=== PATIENT | female | born 2000 | race Hispanic/Latino ===

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

== ENCOUNTER 2020-01-05 00:04 | Emergency (ER) | payer SELFPAY ==
[2020-01-05 00:50] LABS: APPEARANCE,URINE Cloudy (CLEAR); BILIRUBIN,URINE Negative (NEGATIVE); COLOR,URINE Yellow (YELLOW); GLUCOSE, URINE (UA) Negative (NEGATIVE); KETONES,URINE Trace mg/dL (NEGATIVE); LEUKOCYTE ESTERASE ,URINE Negative (NEGATIVE); NITRATE,URINE Negative (NEGATIVE); OCCULT BLOOD,URINE Negative (NEGATIVE); PH,URINE 5.5 (5.0-8.0); PROTEIN,URINE Negative (NEGATIVE)
[2020-01-05] MEDS ORDERED: IBUPROFEN 600 MG TABLET ONE (00:50)
[2020-01-05 00:53] LABS: HCG,QUAL RESULT NEGATIVE (NEGATIVE)
[2020-01-05 01:13] LABS: BASOPHILS % (AUTO) 0.5 % (0.0-5.0); EOSINOPHILS % (AUTO) 1.7 % (0.0-8.0); HEMATOCRIT 40.8 % (36-48); LYMPHOCYTES % (AUTO) 49.3 % (21.0-51.0); MEAN CORPUSCULAR HEMOGLOBIN 30.9 pg (27.0-33.0); MEAN CORPUSCULAR HGB CONC 34.3 g/dL (32.0-36.0); MEAN CORPUSCULAR VOLUME 90.1 fL (80-100); NEUTROPHILS % (AUTO) 42.3 % (40.0-77.0); PLATELET COUNT (AUTO) 259 K/uL (130-400); RED BLOOD CELL COUNT(AUTO) 4.53 MIL/uL (4.00-5.50); RED CELL DISTRIBUTION WIDTH 11.7 % (11.0-15.5)
[2020-01-05 01:30] LABS: CREATININE 1.1 mg/dL (0.5-1.5); POTASSIUM 3.8 mmol/L (3.5-5.1)
[2020-01-05 01:34] LABS: BILIRUBIN,TOTAL 0.8 mg/dL (0.2-1.0)
== END 2020-01-05 02:03 | disposition home or self-care (01) ==
LOC: EDH 00:04
DX: R07.89 Other chest pain (principal); R42 Dizziness and giddiness; F41.9 Anxiety disorder, unspecified
CPT/HCPCS: 36415; 71045; 80053; 81003; 81025; 82550; 84484; 85025; 93005

== ENCOUNTER 2020-07-24 23:50 | Emergency (ER) | payer OTHER ==
[2020-07-25] MEDS ORDERED: ACETAMINOPHEN EXTRA STRENGTH 500 MG TABLET ONE (00:18)
[2020-07-25] MEDS ORDERED: IBUPROFEN 600 MG TABLET ONE (00:18)
== END 2020-07-25 00:47 | disposition home or self-care (01) ==
LOC: EDH 23:50
DX: R07.89 Other chest pain (principal); M62.830 Muscle spasm of back
CPT/HCPCS: 71045; 93005; 96361; 96374; 96375

== ENCOUNTER 2021-12-17 14:49 | Emergency (ER) | payer OTHER ==
[~2021-12-17] VITALS: Ht 167.6 cm; Wt 83.9 kg
[2021-12-17 14:54] VITALS: BP 129/81
[2021-12-17 16:25] LABS: APPEARANCE,URINE CLOUDY (CLEAR); BILIRUBIN,URINE NEGATIVE (NEGATIVE); COLOR,URINE YELLOW (YELLOW); GLUCOSE, URINE (UA) NEGATIVE (NEGATIVE); KETONES,URINE 40 mg/dL (NEGATIVE); LEUKOCYTE ESTERASE ,URINE SMALL (NEGATIVE); NITRATE,URINE POSITIVE (NEGATIVE); OCCULT BLOOD,URINE MODERATE (NEGATIVE); PROTEIN,URINE 100 mg/dL (NEGATIVE); UROBILINOGEN,URINE 0.2 mg/dL (0.2-1.0)
[2021-12-17] MEDS ORDERED: CEFTRIAXONE 1G VIAL IM ONE (16:30)
[2021-12-17] MEDS ORDERED: CEPH500B PO (16:30)
[2021-12-17] MEDS ORDERED: PHEN-847 PO (16:30)
[2021-12-17 16:35] LABS: BACTERIA,URINE Few /HPF (None Seen); RBC,URINE 51-100 /HPF (0-1); WBC,URINE 26-50 /HPF (0-1)
[2021-12-17 16:36] LABS: SQUAMOUS EPITHELIAL CELL,UR None Seen /HPF (0-2)
[2021-12-17] MEDS ORDERED: LIDOCAINE HCL-MPF 1% 2ML VIAL ONE (16:36)
== END 2021-12-17 16:51 | disposition home or self-care (01) ==
LOC: EDH 15:08
DX: N39.0 Urinary tract infection, site not specified (principal)
CPT/HCPCS: 81001; 81025; 87077; 87088; 87186; 87486; 87797; 96372; 99283; J0696; J3490

== ENCOUNTER 2022-09-13 02:35 | Emergency (ER) | payer OTHER ==
[~2022-09-13] VITALS: Ht 170.2 cm; Wt 86.2 kg
[~2022-09-13 02:35] MED LIST: CEPH500B PO; PHEN-847 PO
[2022-09-13] MEDS ORDERED: IBUP-1493 PO (03:25)
[2022-09-13] MEDS ORDERED: IBUPROFEN 800 MG TAB PO ONE (03:30)
[2022-09-13 04:25] VITALS: BP 118/72
== END 2022-09-13 04:53 | disposition home or self-care (01) ==
LOC: EDH 02:35
DX: S80.02XA Contusion of left knee, initial encounter (principal); W19.XXXA Unspecified fall, initial encounter; Y93.01 Activity, walking, marching and hiking; Y92.89 Other specified places as the place of occurrence of the external cause; Y99.8 Other external cause status
CPT/HCPCS: 73562

== ENCOUNTER 2022-12-22 23:35 | Emergency (ER) | payer OTHER ==
[~2022-12-22] VITALS: Ht 167.6 cm; Wt 93.9 kg
[~2022-12-22 23:35] MED LIST changes: +IBUP-1493 PO
[2022-12-22 23:39] VITALS: BP 131/69
[2022-12-23] MEDS ORDERED: IBUP-2070 PO (20:00)
[2022-12-23] MEDS ORDERED: GUAIF10 PO (20:00)
== END 2022-12-23 02:39 | disposition left against medical advice (07) ==
LOC: EDH 23:35
DX: R05.9 Cough, unspecified (principal); Z53.21 Procedure and treatment not carried out due to patient leaving prior to being seen by health care provider
CPT/HCPCS: 99281

== ENCOUNTER 2022-12-23 17:57 | Emergency (ER) | payer OTHER ==
[~2022-12-23] VITALS: Ht 167.6 cm; Wt 93.9 kg
[2022-12-23 18:36] LABS: APPEARANCE,URINE CLEAR (CLEAR); BILIRUBIN,URINE NEGATIVE (NEGATIVE); COLOR,URINE LIGHT-YELLOW (YELLOW); GLUCOSE, URINE (UA) NEGATIVE (NEGATIVE); KETONES,URINE NEGATIVE (NEGATIVE); LEUKOCYTE ESTERASE ,URINE NEGATIVE Leu/uL (NEGATIVE); NITRATE,URINE NEGATIVE (NEGATIVE); OCCULT BLOOD,URINE NEGATIVE (NEGATIVE); PH,URINE 6.5 (5.0-8.0); PROTEIN,URINE NEGATIVE (NEGATIVE); UROBILINOGEN,URINE 0.2 mg/dL (0.2-1.0)
[2022-12-23 18:52] LABS: BACTERIA,URINE RARE /HPF (None Seen); MUCUS,URINE FEW LPF (None Seen); SQUAMOUS EPITHELIAL CELL,UR RARE /HPF (0-2); WBC,URINE 0-1 /HPF (0-1); YEAST,URINE BUDDING FEW /HPF (None Seen)
[2022-12-23 18:54] LABS: HCG,QUALITATIVE URINE NEGATIVE (NEGATIVE)
[2022-12-23 19:15] LABS: BASOPHILS % (AUTO) 0.5 % (0.0-5.0); EOSINOPHILS % (AUTO) 1.7 % (0.0-8.0); HEMATOCRIT 40.1 % (36-48); MEAN CORPUSCULAR HEMOGLOBIN 30.4 pg (27.0-33.0); MEAN CORPUSCULAR HGB CONC 33.9 g/dL (32.0-36.0); MEAN CORPUSCULAR VOLUME 89.7 fL (79-99); MONOCYTES % (AUTO) 6.2 % (3.0-13.0); NEUTROPHILS % (AUTO) 53.2 % (40.0-77.0); PLATELET COUNT (AUTO) 252 K/uL (130-400); RED BLOOD CELL COUNT(AUTO) 4.47 MIL/uL (4.00-5.50); WHITE BLOOD COUNT (AUTO) 10.1 K/uL (4.8-10.8)
[2022-12-23 19:29] LABS: ALBUMIN 3.6 g/dL (3.5-5.0); CREATININE 0.8 mg/dL (0.5-1.5); POTASSIUM 3.8 mmol/L (3.5-5.1); TOTAL PROTEIN, SERUM 7.1 g/dL (6.0-8.3)
[2022-12-23] MEDS ORDERED: IBUPROFEN 600 MG TABLET PO ONE (19:30)
[2022-12-23] MEDS ORDERED: IBUPROFEN 200 MG TAB ONE (19:31)
[2022-12-23] MEDS ORDERED: GUAIF10 PO (20:00)
[2022-12-23] MEDS ORDERED: IBUP-2070 PO (20:00)
[2022-12-23 20:08] VITALS: BP 110/85
== END 2022-12-23 20:13 | disposition home or self-care (01) ==
LOC: EDH 17:57
DX: J40 Bronchitis, not specified as acute or chronic (principal); B97.4 Respiratory syncytial virus as the cause of diseases classified elsewhere; Z79.1 Long term (current) use of non-steroidal anti-inflammatories (NSAID); Z79.899 Other long term (current) drug therapy; Z20.822 Contact with and (suspected) exposure to COVID-19
CPT/HCPCS: 99285; 71045; 87635; 80053; 85025; 87807; 87804 ×2; 81001; 81025; 36415; 93005; C9803

== ENCOUNTER 2023-05-21 10:32 | Emergency (ER) | payer OTHER ==
[~2023-05-21] VITALS: Ht 170.2 cm; Wt 86.2 kg
[~2023-05-21 10:32] MED LIST changes: +GUAIF10 PO; +IBUP-2070 PO
[2023-05-21 11:57] VITALS: BP 144/70; PULSE 80; RESP 18
[2023-05-21 14:33] LABS: APPEARANCE,URINE CLEAR (CLEAR); BILIRUBIN,URINE NEGATIVE (NEGATIVE); COLOR,URINE LIGHT-YELLOW (YELLOW); GLUCOSE, URINE (UA) NEGATIVE (NEGATIVE); KETONES,URINE NEGATIVE (NEGATIVE); LEUKOCYTE ESTERASE ,URINE NEGATIVE Leu/uL (NEGATIVE); NITRATE,URINE NEGATIVE (NEGATIVE); OCCULT BLOOD,URINE NEGATIVE (NEGATIVE); PH,URINE 6.5 (5.0-8.0); PROTEIN,URINE NEGATIVE (NEGATIVE); UROBILINOGEN,URINE 0.2 mg/dL (0.2-1.0)
[2023-05-21 14:34] LABS: ADD UA MICROSCOPIC YES
[2023-05-21 14:38] LABS: HCG,QUALITATIVE URINE NEGATIVE (NEGATIVE)
[2023-05-21 14:42] LABS: BACTERIA,URINE RARE /HPF (None Seen); MUCUS,URINE RARE LPF (None Seen); SQUAMOUS EPITHELIAL CELL,UR RARE /HPF (0-2)
[2023-05-21 14:47] LABS: RAPID GROUP A STREP negative (NEGATIVE)
[2023-05-21 14:55] LABS: SARS-CoV-2, RNA, NAAT NEGATIVE SARS CoV-2 (NEGATIVE)
[2023-05-21 14:58] LABS: INFLUENZA TYPE A Negative For Type A (NEGATIVE); INFLUENZA TYPE B Negative For Type B (NEGATIVE)
[2023-05-21] MEDS ORDERED: IBUP-2070 PO (15:11)
[2023-05-21] MEDS ORDERED: METOCLOPRAMIDE 10 MG/2 ML VIAL IM ONE (15:30)
[2023-05-21] MEDS ORDERED: ACETAMINOPHEN 500 MG TABLET PO ONE (15:30)
== END 2023-05-21 15:54 | disposition home or self-care (01) ==
LOC: EDH 10:32
DX: G44.209 Tension-type headache, unspecified, not intractable (principal); R53.83 Other fatigue; Z20.822 Contact with and (suspected) exposure to COVID-19; Z79.899 Other long term (current) drug therapy; Z98.890 Other specified postprocedural states
CPT/HCPCS: 99283; 87635; 87880; 87804 ×2; 81001; 81025; 96372; C9803; J2765

== ENCOUNTER 2023-08-11 17:23 | Emergency (ER) | payer OTHER ==
[~2023-08-11] VITALS: Ht 170.2 cm; Wt 90.7 kg
[~2023-08-11 17:23] MED LIST changes: +HYDR-3421 PO; +NAPR-1023 PO
[2023-08-11 17:34] VITALS: BP 139/80; PULSE 110; RESP 16; O2SAT 98
[2023-08-11 18:06] LABS: SARS-CoV-2, RNA, NAAT NEGATIVE SARS CoV-2 (NEGATIVE)
[2023-08-11 18:09] LABS: RAPID GROUP A STREP positive (NEGATIVE)
[2023-08-11 18:12] LABS: INFLUENZA TYPE A Negative For Type A (NEGATIVE); INFLUENZA TYPE B Negative For Type B (NEGATIVE)
[2023-08-11] MEDS ORDERED: IBUP-2070 PO (18:56)
[2023-08-11] MEDS ORDERED: AMOX1TAB16 PO (18:56)
[2023-08-11] MEDS ORDERED: DEXAMETHASONE SOD PHOSPHATE 4 MG/ML 1ML VIAL IM ONE (19:00)
[2023-08-11] MEDS ORDERED: AMOX/CLAV 875/125MG TAB PO ONE (19:00)
[2023-08-11] MEDS ORDERED: CEFTRIAXONE 1G VIAL IM ONE (19:00)
[2023-08-11] MEDS ORDERED: AMOXICILLIN 500 MG CAPSULE PO ONE (19:00)
== END 2023-08-11 19:17 | disposition home or self-care (01) ==
LOC: EDH 17:23
DX: J03.90 Acute tonsillitis, unspecified (principal); R50.9 Fever, unspecified; R51.9 Headache, unspecified; Z20.822 Contact with and (suspected) exposure to COVID-19; Z79.899 Other long term (current) drug therapy; Z98.890 Other specified postprocedural states
CPT/HCPCS: 99284; 87635; 87880; 87804 ×2; 96372 ×2; J1100; C9803; J0696

== ENCOUNTER 2023-08-12 19:56 | Emergency (ER) | payer OTHER ==
[~2023-08-12] VITALS: Ht 170.2 cm; Wt 90.7 kg
[~2023-08-12 19:56] MED LIST changes: +AMOX1TAB16 PO
[2023-08-12] MEDS ORDERED: AMOX/CLAV 875/125MG TAB PO ONE (23:30)
[2023-08-13 00:15] VITALS: BP 132/74; PULSE 88; RESP 20; O2SAT 99
== END 2023-08-13 00:16 | disposition home or self-care (01) ==
LOC: EDH 19:56
DX: T78.49XA Other allergy, initial encounter (principal); J02.9 Acute pharyngitis, unspecified; Z79.899 Other long term (current) drug therapy; Z98.890 Other specified postprocedural states; X58.XXXA Exposure to other specified factors, initial encounter
CPT/HCPCS: 99281

== ENCOUNTER 2023-10-26 23:38 | Emergency (ER) | payer OTHER ==
[~2023-10-26] VITALS: Ht 167.6 cm; Wt 90.3 kg
[2023-10-27] MEDS ORDERED: FAMOTIDINE 20MG TAB PO ONE (01:00)
[2023-10-27 01:07] LABS: BASOPHILS # (AUTO) 0.05 K/uL (0.00-0.20); BASOPHILS % (AUTO) 0.5 % (0.0-5.0); EOSINOPHILS # (AUTO) 0.19 K/uL (0.00-0.70); EOSINOPHILS % (AUTO) 2.1 % (0.0-8.0); HEMATOCRIT 38.8 % (36-48); IMMATURE GRANULOCYTE ABSOLUTE 0.02 K/uL (0-1); LYMPHOCYTES # (AUTO) 4.6 K/uL (1.0-4.8); LYMPHOCYTES % (AUTO) 50.6 % (21.0-51.0); MEAN CORPUSCULAR HEMOGLOBIN 31.8 pg (27.0-33.0); MEAN CORPUSCULAR HGB CONC 35.6 g/dL (32.0-36.0); MEAN CORPUSCULAR VOLUME 89.4 fL (79-99); MONOCYTES # (AUTO) 0.7 K/uL (0.1-1.0); NEUTROPHILS # (AUTO) 3.5 K/uL (1.8-7.7); NEUTROPHILS % (AUTO) 38.6 % (40.0-77.0); PLATELET COUNT (AUTO) 260 K/uL (130-400); RED BLOOD CELL COUNT(AUTO) 4.34 MIL/uL (4.00-5.50); RED CELL DISTRIBUTION WIDTH 11.9 % (11.0-15.5); WHITE BLOOD COUNT (AUTO) 9.1 K/uL (4.8-10.8)
[2023-10-27 01:09] LABS: APPEARANCE,URINE CLEAR (CLEAR); BILIRUBIN,URINE NEGATIVE (NEGATIVE); COLOR,URINE LIGHT-YELLOW (YELLOW); GLUCOSE, URINE (UA) NEGATIVE (NEGATIVE); KETONES,URINE NEGATIVE (NEGATIVE); LEUKOCYTE ESTERASE ,URINE NEGATIVE Leu/uL (NEGATIVE); NITRATE,URINE NEGATIVE (NEGATIVE); OCCULT BLOOD,URINE NEGATIVE (NEGATIVE); PH,URINE 6.5 (5.0-8.0); PROTEIN,URINE NEGATIVE (NEGATIVE); UROBILINOGEN,URINE 0.2 mg/dL (0.2-1.0)
[2023-10-27 01:14] LABS: ADD UA MICROSCOPIC NO; HCG,QUALITATIVE URINE NEGATIVE (NEGATIVE)
[2023-10-27 01:16] LABS: CREATININE 0.9 mg/dL (0.5-1.5); POTASSIUM 3.8 mmol/L (3.5-5.1)
[2023-10-27 01:21] LABS: ALBUMIN 3.6 g/dL (3.5-5.0); BILIRUBIN,TOTAL 0.6 mg/dL (0.2-1.0); TOTAL PROTEIN, SERUM 7.5 g/dL (6.0-8.3)
[2023-10-27] MEDS ORDERED: IBUP-2077 PO ×2 (03:28→03:35)
[2023-10-27 03:46] VITALS: BP 112/72; PULSE 78; RESP 16; O2SAT 99
== END 2023-10-27 03:47 | disposition home or self-care (01) ==
LOC: EDH 23:38
DX: R10.84 Generalized abdominal pain (principal); Z79.899 Other long term (current) drug therapy; Z98.890 Other specified postprocedural states
CPT/HCPCS: 36415; 80053; 81003; 81025; 83690; 85025

== ENCOUNTER 2025-02-23 02:19 | Emergency (ER) | payer OTHER ==
[~2025-02-23] VITALS: Ht 167.6 cm; Wt 95.3 kg
[~2025-02-23 02:19] MED LIST changes: +GUAI100L96 PO; -GUAIF10 PO; +IBUP-2077 PO; -NAPR-1023 PO; +NAPR-1194 PO
--- NOTE | 2025-02-23 02:41 | ERN ---
General Chief Complaint: Abdominal Pain Stated Complaint: C/O ABD PAIN, FATIGUE Time Seen by MD: 02:28 Source: patient History of Present Illness Initial Comments 24-year-old female with a history of anxiety and difficulty with pregnancies was woken from sleep with midepigastric pain and nausea. She also felt a little warm. She thinks she maybe and she wants to be sure and also to know that the is doing well. She did a home test before coming to the emergency room and it was ambiguous. She has no other symptoms. Timing/Duration: 1 hour Allergies: Coded Allergies: No Known Allergies (Unverified Allergy, Unknown, 09/01/19) Home Meds Active Scripts Ibuprofen (Ibuprofen 800 mg Tab) 800 Mg Tab, 800 MG PO Q6H PRN for PAIN, #30 TAB Prov:ENRRIQUE FLANAGAN MD 10/27/23 Ibuprofen (Ibuprofen 800 mg Tab) 800 Mg Tab, 800 MG PO Q6HPRN PRN for PAIN, #30 TAB Prov:ENRRIQUE FLANAGAN MD 10/27/23 Ibuprofen (Ibuprofen) 600 Mg Tablet, 600 MG PO Q6H PRN for PAIN, #20 TAB 0 Refills Prov:AJITH TORRES [facility] 08/11/23 Amoxicillin/Potassium Clav (Amox Tr-K Clv 875-125 mg Tab) 875 Mg-125 Mg Tablet, 1 EACH PO BID for 10 Days, #20 TAB 0 Refills Prov:AJITH TORRES [facility] 08/11/23 Naproxen (Naproxen) 500 Mg Tablet, 500 MG PO BID for 5 Days, #10 TAB Prov:DYLAN KEEN 07/09/23 Hydroxyzine HCl (Hydroxyzine HCl) 25 Mg Tablet, 25 MG PO BID for 5 Days, #10 TAB Prov:DYLAN KEEN 07/09/23 Ibuprofen (Ibuprofen) 600 Mg Tablet, 600 MG PO Q6H PRN for PAIN, #30 TAB Prov:YOGI ZUÑIGA V [facility] 05/21/23 Guaifenesin (Robitussin Syrp) 100 Mg/5 Ml Syrp, 200 MG PO Q4PRN PRN for COUGH/COLD SYMPTOMS, #300 ML Prov:JORGE GARZA [facility] 12/23/22 Ibuprofen (Ibuprofen) 600 Mg Tablet, 600 MG PO Q6H PRN for PAIN, #15 TAB Prov:JORGE GARZA [facility] 12/23/22 Ibuprofen (Motrin/Advil) 800 Mg Tab, 800 MG PO TID, #30 TAB Prov:WANG JIMÉNEZ MD 09/13/22 Phenazopyridine HCl (Pyridium) 200 Mg Tab, 200 MG PO TIDPC, #9 TAB TAKE WITH FOOD TO PREVENT STOMACH UPSET. Prov:JORGE GARZA [facility] 12/17/21 Cephalexin Monohydrate (Keflex) 500 Mg Cap, 500 MG PO QID for 7 Days, #28 CAP Prov:JORGE GARZA [facility] 12/17/21 Past Medical History Past Medical History: Anxiety Past Surgical History: Other Surgical History Other: RT LEG SX Family History Family History: Negative Social History Social History: Lives with family Female( History) History: Not Applicable LMP: Jan 07, 2025 : 0 Para: 0 Aborts: 0 Constitutional: (-) chills, (-) diaphoresis, (-) fever, (-) malaise, (-) weakness, (-) other documentation EENTM: (-) eye pain, (-) blurred vision, (-) tearing, (-) double vision, (-) ear pain, (-) ear discharge, (-) nose pain, (-) nose congestion, (-) throat pain, (-) Throat swelling, (-) mouth pain, (-) tooth pain, (-) mouth swelling, (-) other documentation Respiratory: (-) cough, (-) orthopnea, (-) short of breath, (-) stridor, (-) wheezing, (-) other documentation Cardiovascular: (-) chest pain, (-) edema, (-) palpitations, (-) syncope, (-) dyspnea on exertion, (-) other documentation Gastrointestinal/Abdominal: (-) nausea, (-) vomiting, (-) diarrhea, (-) abdominal pain, (-) abdominal distention, (-) constipation, (-) rectal bleeding, (-) dark stool/melena, (-) other documentation Genitourinary: (-) vaginal discharge, (-) vaginal bleeding, (-) dysuria, (-) frequency, (-) hematuria, (-) pain, (-) other documentation Musculoskeletal: (-) Neck pain, (-) back pain, (-) Flank Pain, (-) joint pain, (-) joint swelling, (-) muscle pain, (-) muscle stiffness, (-) gout, (-) other documentation Physical Exam General Appearance: (+) no apparent distress Orientation: (+) alert, (+) oriented x 3 Head/Face Trauma: No Eye: bilateral eye normal inspection, bilateral eye PERRL, bilateral eye EOMI Ear, Nose, Throat: (+) hearing grossly normal, (+) normal ENT inspection, (+) moist mucous membraine Neck: (+) normal inspection, (+) supple, (+) full range of motion, (+) no JVD Respiratory: (+) chest non-tender, (+) lungs clear, (+) well ventilated Heart: (+) regular, (+) no gallop Vascular: (+) no edema, (+) normal peripheral pulse Gastrointestinal: (+) soft, (+) non-tender, (+) no organomegaly, (+) bowel sound present Gastrointestinal Comment I was able to push quite deeply into her abdomen and she had no pain or tenderness in all quadrants Results Laboratory and Microbiology Lab and Micro Result Laboratory Tests Test 02/23/25 02:29 Urine Color COLORLESS (YELLOW) Urine Appearance CLEAR (CLEAR) Urine pH 6.0 (5.0-8.0) Urine Specific [place] 1.012 (1.001-1.031) Urine Protein NEGATIVE mg/dL (NEGATIVE) Urine Glucose (UA) NEGATIVE mg/dL (NEGATIVE) Urine Ketones NEGATIVE mg/dL (NEGATIVE) Urine Occult Blood NEGATIVE (NEGATIVE) Urine Nitrate NEGATIVE (NEGATIVE) Urine Bilirubin NEGATIVE mg/dL (NEGATIVE) Urine Urobilinogen 0.2 mg/dL (0.2-1.0) Urine Leukocyte Esterase NEGATIVE James/uL Urine RBC 0-1 /HPF (0-1) Urine WBC 2-5 /HPF (0-1) H Urine Squamous Epithelial Cells RARE /HPF (0-2) Urine Bacteria RARE /HPF (None Seen) Urine HCG, Qualitative NEGATIVE (NEGATIVE) MDM I will do a qualitative urine screen and a quantitative serum screen. Then based on those results I may or may not do a transvaginal ultrasound. Patient's urine screen is negative. I canceled the quantitative serum screen. I discharge the patient from the emergency. ED Course Orders Procedure Category Date Status Time Urinalysis Profile LAB 02/23/25 Complete 02:28 ,Urine Test LAB 02/23/25 Complete 02:28 Vital Signs Date Time Temp Pulse Resp B/P (MAP) Pulse Ox O2 Delivery O2 Flow Rate FiO2 02/23/25 02:21 97.7 77 20 126/90 100 Room Air DX & DISP Disposition: Discharge Departure Impression: Primary Impression: Negative test Condition: Stable Additional Instructions: Please return to the emergency room if you continue to experience nausea and em esis to the point that you become dehydrated and lightheaded. An occasional bout of emesis or nausea is not a medical emergency unless you become dehydrated. Referrals: ITA KNIGHT DO (PCP) PAULO HANSON MD February 23, 2025 02:41
[2025-02-23 02:54] LABS: APPEARANCE,URINE CLEAR (CLEAR); BILIRUBIN,URINE NEGATIVE (NEGATIVE); COLOR,URINE COLORLESS (YELLOW); GLUCOSE, URINE (UA) NEGATIVE (NEGATIVE); KETONES,URINE NEGATIVE (NEGATIVE); LEUKOCYTE ESTERASE ,URINE NEGATIVE Leu/uL (NEGATIVE); NITRATE,URINE NEGATIVE (NEGATIVE); OCCULT BLOOD,URINE NEGATIVE (NEGATIVE); PROTEIN,URINE NEGATIVE (NEGATIVE); UROBILINOGEN,URINE 0.2 mg/dL (0.2-1.0)
[2025-02-23 02:57] LABS: ADD UA MICROSCOPIC YES
[2025-02-23 02:58] LABS: BACTERIA,URINE RARE /HPF (None Seen); MUCUS,URINE RARE LPF (None Seen); RBC,URINE 0-1 /HPF (0-1); SQUAMOUS EPITHELIAL CELL,UR RARE /HPF (0-2)
[2025-02-23 03:34] VITALS: BP 115/75; PULSE 72; RESP 18; TEMP 98.2; O2SAT 98
== END 2025-02-23 03:38 | disposition home or self-care (01) ==
LOC: EDH 02:19
DX: R10.13 Epigastric pain (principal); R11.0 Nausea; Z32.02 Encounter for pregnancy test, result negative; F41.9 Anxiety disorder, unspecified; Z79.1 Long term (current) use of non-steroidal anti-inflammatories (NSAID); Z79.899 Other long term (current) drug therapy; Z98.890 Other specified postprocedural states
CPT/HCPCS: 81001; 81025; 99283

== ENCOUNTER 2025-06-19 13:45 | Emergency (ER) | payer OTHER ==
[~2025-06-19] VITALS: Ht 167.6 cm; Wt 93.0 kg
[~2025-06-19 13:45] MED LIST changes: +IBUP-1492 PO; -IBUP-2070 PO
--- NOTE | 2025-06-19 15:58 | ERN ---
General Chief Complaint: Cough Stated Complaint: COUGH, CONGESTION, BODY ACHES Time Seen by MD: 14:09 History of Present Illness Initial Comments 24-year-old female presents to the emergency department with acute onset of headache, cough, throat pain, ear pain, and associated chills, body aches and hot flashes, beginning approximately 24 hours prior to presentation. She reports odynophagia, describing pain with swallowing. No prior similar episodes. She denies shortness of breath, chest pain, or gastrointestinal symptoms. She notes recent exposure to her [id number] nephew, who had flu a week ago. Associated Symptoms: headaches, malaise Allergies: Coded Allergies: No Known Allergies (Unverified Allergy, Unknown, 09/01/19) Home Meds Active Scripts Ibuprofen (Ibuprofen 800 mg Tab) 800 Mg Tab, 800 MG PO Q6H PRN for PAIN, #30 TAB Prov:ENRRIQUE FLANAGAN MD 10/27/23 Ibuprofen (Ibuprofen 800 mg Tab) 800 Mg Tab, 800 MG PO Q6HPRN PRN for PAIN, #30 TAB Prov:ENRRIQUE FLANAGAN MD 10/27/23 Ibuprofen (Ibuprofen) 600 Mg Tablet, 600 MG PO Q6H PRN for PAIN, #20 TAB 0 Refills Prov:AJITH TORRES [facility] 08/11/23 Amoxicillin/Potassium Clav (Amox Tr-K Clv 875-125 mg Tab) 875 Mg-125 Mg Tablet, 1 EACH PO BID for 10 Days, #20 TAB 0 Refills Prov:AJITH TORRES [facility] 08/11/23 Naproxen (Naproxen) 500 Mg Tablet, 500 MG PO BID for 5 Days, #10 TAB Prov:DYLAN KEEN 07/09/23 Hydroxyzine HCl (Hydroxyzine HCl) 25 Mg Tablet, 25 MG PO BID for 5 Days, #10 TAB Prov:DYLAN KEEN 07/09/23 Ibuprofen (Ibuprofen) 600 Mg Tablet, 600 MG PO Q6H PRN for PAIN, #30 TAB Prov:YOGI ZUÑIGA V [facility] 05/21/23 Guaifenesin (Robitussin Syrp) 100 Mg/5 Ml Syrp, 200 MG PO Q4PRN PRN for COUGH/COLD SYMPTOMS, #300 ML Prov:JORGE GARZA [facility] 12/23/22 Ibuprofen (Ibuprofen) 600 Mg Tablet, 600 MG PO Q6H PRN for PAIN, #15 TAB Prov:JORGE GARZAP 12/23/22 Ibuprofen (Motrin/Advil) 800 Mg Tab, 800 MG PO TID, #30 TAB Prov:WANG JIMÉNEZ MD 09/13/22 Phenazopyridine HCl (Pyridium) 200 Mg Tab, 200 MG PO TIDPC, #9 TAB TAKE WITH FOOD TO PREVENT STOMACH UPSET. Prov:JORGE GARZAP 12/17/21 Cephalexin Monohydrate (Keflex) 500 Mg Cap, 500 MG PO QID for 7 Days, #28 CAP Prov:JORGE GARZA [facility] 12/17/21 Past Medical History Past Medical History: Anxiety Past Surgical History: Other Surgical History Other: RT LEG SX Family History Family History: Negative Social History Social History: Lives with family Female( History) History: Not Applicable LMP: Jun 01, 2025 : 0 Para: 0 Aborts: 0 Constitutional: (+) chills, (+) malaise EENTM: (+) ear pain, (+) throat pain; (-) eye pain, (-) blurred vision, (-) tearing, (-) double vision, (-) ear discharge, (-) nose pain, (-) nose congestion, (-) Throat swelling, (-) mouth pain, (-) tooth pain, (-) mouth swelling, (-) other documentation Respiratory: (+) cough; (-) orthopnea, (-) short of breath, (-) stridor, (-) wheezing, (-) other documentation Cardiovascular: (-) chest pain, (-) edema, (-) palpitations, (-) syncope, (-) dyspnea on exertion, (-) other documentation Gastrointestinal/Abdominal: (-) nausea, (-) vomiting, (-) diarrhea, (-) abdominal pain, (-) abdominal distention, (-) constipation, (-) rectal bleeding, (-) dark stool/melena, (-) other documentation Genitourinary: (-) vaginal discharge, (-) vaginal bleeding, (-) dysuria, (-) frequency, (-) hematuria, (-) pain, (-) other documentation Musculoskeletal: (-) Neck pain, (-) back pain, (-) Flank Pain, (-) joint pain, (-) joint swelling, (-) muscle pain, (-) muscle stiffness, (-) gout, (-) other documentation Skin: (-) laceration, (-) contusion, (-) abrasion, (-) abscess, (-) rash, (-) change in color, (-) change in hair, (-) change in nails, (-) diaphoresis, (-) dryness, (-) other documentation Neuro: (-) altered mental status, (-) headache, (-) syncope, (-) paralysis, (-) numbness, (-) seizure, (-) pre-existing deficit, (-) tremors, (-) weakness, (-) dizziness, (-) slurred speech, (-) vertigo, (-) other documentation Psych: (-) depression, (-) suicidal ideation, (-) anxiety, (-) emotional problems, (-) auditory hallucinations, (-) visual hallucinations Hematologic/Lymphatic: (-) anemia, (-) blood clots, (-) easy bleeding, (-) easy bruising, (-) swollen glands, (-) other documentation Physical Exam General Appearance: (+) no apparent distress, (+) apparent distress Orientation: (+) alert, (+) oriented x 3 Head/Face Trauma: No Ear, Nose, Throat: (+) hearing grossly normal, (+) normal ENT inspection (Impacted cerumen in left ear canalotherwise normal otitis externa, TM inspection) Neck: (+) normal inspection, (+) supple Respiratory: (+) chest non-tender, (+) lungs clear Heart: (+) regular, (+) no gallop Gastrointestinal: (+) soft, (+) non-tender Extremities: (+) normal range of motion Neurologic/Psychiatric: (+) normal speech Results Laboratory and Microbiology Lab and Micro Result Laboratory Tests Test 06/19/25 15:00 Influenza Type A Antigen Negative For Type A Influenza Type B Antigen Negative For Type B SARS-CoV-2 Antigen (Rapid) POSITIVE FOR SARS AG Group A Streptococcus Rapid negative (NEGATIVE) MDM MDM: Differential diagnosis: , Rationale: Tests considered and ordered secondary to shared decision making include: labs, ECG and radiology Previous outside records reviewed: Old ER visits. Risk of complication and/or morbidity or mortality of patient management: None Medications-Per medication reconciliation Need for hospitalization: Patient does not meet criteria for hospitalization. Need for emergency major/minor surgery: No ED Course Orders Procedure Category Date Status Time Covid19 (Sars Antigen LAB 06/19/25 Complete Rapid) 14:49 Influenza Type A & B, LAB 06/19/25 Complete Rapid 14:49 Rapid (Group A Strep) LAB 06/19/25 Complete 14:49 Acetaminophen 500mg PHA 06/19/25 Complete Tab (Tylenol 500mg T 15:00 Current Medications Medications (Trade) Dose Ordered Sig/Julio C Route PRN Reason Start Time Stop Time Status Last Admin Dose Admin Acetaminophen (TYLenol 500MG TAB) 1,000 mg ONCE ONCE PO 06/19/25 15:00 06/19/25 15:01 DC 06/19/25 15:01 Vital Signs Date Time Temp Pulse Resp B/P (MAP) Pulse Ox O2 Delivery O2 Flow Rate FiO2 06/19/25 14:11 98.4 76 16 124/76 98 Room Air* 0 21 06/19/25 13:47 98.4 79 16 122/78 98 Room Air 0 DX & DISP Disposition: Discharge Departure Impression: Primary Impression: COVID Condition: Stable Scripts Azithromycin (Azithromycin) 250 Mg Tablet 1 TAB PO AD for 5 Days, #5 TAB 0 Refills 2 the first day followed by 1 for days 2-5 Prov: MARIA CHAVIS MD 06/19/25 Referrals: ITA KNIGHT DO (PCP) TRISHA MOODY MD Jun 19, 2025 15:58 MARIA CHAVIS MD Jun 19, 2025 17:11
[2025-06-19 16:16] LABS: RAPID GROUP A STREP negative (NEGATIVE)
[2025-06-19 16:25] LABS: INFLUENZA TYPE A Negative For Type A (NEGATIVE); INFLUENZA TYPE B Negative For Type B (NEGATIVE)
[2025-06-19 16:49] LABS: COVID19 (SARS ANTIGEN RAPID) POSITIVE FOR SARS AG (NEGATIVE)
[2025-06-19] MEDS ORDERED: AZIT250T9 PO (17:11)
[2025-06-19 17:13] VITALS: BP 126/70; PULSE 72; RESP 16; TEMP 98.5; O2SAT 98
[2025-06-19] MEDS ORDERED: METH4TAB PO (17:14)
== END 2025-06-19 17:19 | disposition home or self-care (01) ==
LOC: EDH 13:45
DX: U07.1 COVID-19 (principal); F41.9 Anxiety disorder, unspecified; Z79.1 Long term (current) use of non-steroidal anti-inflammatories (NSAID)
CPT/HCPCS: 87426; 87804; 87880; 99283

== ENCOUNTER → 2025-07-01 | Emergency (ER) | payer OTHER ==
[~2025-07-01] VITALS: Ht 170.2 cm; Wt 93.0 kg
[~2025-07-01] MED LIST changes: +AZIT250T9 PO; +METH4TAB PO
[2025-07-01 03:10] VITALS: BP 138/87; PULSE 116; RESP 18; TEMP 98.3; O2SAT 99
--- NOTE | 2025-07-01 03:17 | NUR ---
PT TAKEN TO CT AT THIS TIME WITH ED RN
[2025-07-01 03:25] LABS: IMMATURE GRANULOCYTE ABSOLUTE 0.07 K/uL (0-1); NUCLEATED RED BLOOD CELLS 0.0 % (0.0-0.19); PLATELET COUNT (AUTO) 326 K/uL (130-400); RED BLOOD CELL COUNT(AUTO) 4.48 MIL/uL (4.00-5.50); RED CELL DISTRIBUTION WIDTH 12.1 % (11.0-15.5); WHITE BLOOD COUNT (AUTO) 12.8 K/uL (4.8-10.8)
--- NOTE | 2025-07-01 03:27 | NUR ---
PT BACK FROM CT AT THIS TIME WITH ED RN. PT SHOWS NO SIGNS OF DISTRESS.
[2025-07-01 03:32] LABS: CREATININE 0.6 mg/dL (0.5-1.0); GLOMERULAR FILTR. RATE CALC 128.0 mL/min (>90); GLUCOSE,RANDOM 106.0 mg/dL (70-105); SODIUM SERUM 138.0 mmol/L (136-145); UREA NITROGEN, BLOOD 13.0 mg/dL (7-18)
--- NOTE | 2025-07-01 03:34 | ERN ---
ED Note History of Present Illness Stated Complaint: FALL Chief Complaint: Trauma Activation Time Seen by MD: 03:07 Dictation: This is a 24-year-old overweight female presented to the emergency room by a private vehicle with complaints of fall and injury to the face and head 15-20 mi nutes prior to the presentation. She stated that she and her were having a good time and consuming alcohol she had more than 7 heart drinks and went to use the restroom she tripped and fell hit the right side of the face on the edge of the sink. This resulted in injury to the right eyebrow area with the bleeding. No loss of consciousness patient is not on any blood thinners. No blurred vision diplopia facial droop motor weakness or seizure activity. She only complained of some discomfort the laceration site Temperature 98.2 pulse 141 respirations 20 blood pressure 147/93 pulse oximetry 99% on room air History of anxiety on sertraline. Last tetanus shot 4 years ago Trauma alert called-3.06 AM Time of patient arrival-3.08AM ED physician involved and time of arrival and evaluation-3.08 AM Tier level- 2 [id number] interventions done. Patient just transported by someone by private vehicle and dropped off. Primary survey- Airway intact patient on room air with pulse oximetry of 98% Breathing-normal breath sounds coarse rhonchi bilaterally Circulation-skin warm, distal pulses 2+, capillary refill less than 2 seconds g lobally Disability-only face with laceration on the right eyebrow Pupils equal round reacting to light GCS- E-5 V-4 M-6-15 Motor function-moves all extremities Sensory-no deficits Exposure Allergies: Coded Allergies: No Known Allergies (Unverified Allergy, Unknown, 09/01/19) Home Meds Active Scripts Methylprednisolone (Medrol) 4 Mg Tablet, 1 TAB PO AD for 6 Days, #21 TAB 0 Refills Prov:MARIA CHAVIS MD 06/19/25 Azithromycin (Azithromycin) 250 Mg Tablet, 1 TAB PO AD for 5 Days, #5 TAB 0 Refills 2 the first day followed by 1 for days 2-5 Prov:MARIA CHAVIS MD 06/19/25 Ibuprofen (Ibuprofen 800 mg Tab) 800 Mg Tab, 800 MG PO Q6H PRN for PAIN, #30 TAB Prov:ENRRIQUE FLANAGAN MD 10/27/23 Ibuprofen (Ibuprofen 800 mg Tab) 800 Mg Tab, 800 MG PO Q6HPRN PRN for PAIN, #30 TAB Prov:ENRRIQUE FLANAGAN MD 10/27/23 Ibuprofen (Ibuprofen) 600 Mg Tablet, 600 MG PO Q6H PRN for PAIN, #20 TAB 0 Refills Prov:BRIANAJITH [facility] 08/11/23 Amoxicillin/Potassium Clav (Amox Tr-K Clv 875-125 mg Tab) 875 Mg-125 Mg Tablet, 1 EACH PO BID for 10 Days, #20 TAB 0 Refills Prov:AJITH TORRES [facility] 08/11/23 Naproxen (Naproxen) 500 Mg Tablet, 500 MG PO BID for 5 Days, #10 TAB Prov:DYLAN KEEN 07/09/23 Hydroxyzine HCl (Hydroxyzine HCl) 25 Mg Tablet, 25 MG PO BID for 5 Days, #10 TAB Prov:DYLAN KEEN 07/09/23 Ibuprofen (Ibuprofen) 600 Mg Tablet, 600 MG PO Q6H PRN for PAIN, #30 TAB Prov:YOGI ZUÑIGA V [facility] 05/21/23 Guaifenesin (Robitussin Syrp) 100 Mg/5 Ml Syrp, 200 MG PO Q4PRN PRN for COUGH/COLD SYMPTOMS, #300 ML Prov:JORGE GARZA [facility] 12/23/22 Ibuprofen (Ibuprofen) 600 Mg Tablet, 600 MG PO Q6H PRN for PAIN, #15 TAB Prov:JORGE GARZA [facility] 12/23/22 Ibuprofen (Motrin/Advil) 800 Mg Tab, 800 MG PO TID, #30 TAB Prov:WANG JIMÉNEZ MD 09/13/22 Phenazopyridine HCl (Pyridium) 200 Mg Tab, 200 MG PO TIDPC, #9 TAB TAKE WITH FOOD TO PREVENT STOMACH UPSET. Prov:JORGE GARZA [facility] 12/17/21 Cephalexin Monohydrate (Keflex) 500 Mg Cap, 500 MG PO QID for 7 Days, #28 CAP Prov:JORGE GARZAP 12/17/21 Past Medical History Past Medical History: Anxiety Surgical History: Other Surgical History Other: RT LEG SX Family History: Negative Social History: ETOH, Lives with family History: Not Applicable LMP: Jun 24, 2025 : 0 Para: 0 Aborts: 0 RN Note Reviewed/Agreed w/PFSH: Yes Review of System Dictation Constitutional: Negative for fever,chills, and weight loss Eyes: Negative for injury, pain,redness, and discharge ENT: Positive for injury,pain or swelling and laceration with bleeding over right eyebrow Cardiovascular: Negative for chest pain, palpitations, and edema Respiratory: Negative for shortness of breath, cough, and wheezing, Abdomen/GI: Negative for abdominal pain, nausea, vomiting, diarrhea, and constipation Back: Negative for injury and pain : Negative for injury, bleeding and discharge MS/Extremity: Negative for injury and deformity Skin: Negative for rash, and discoloration Neuro: Negative for headache, weakness, numbness, tingling, and seizure Psych: Negative for suicide ideation, homicidal ideation, and hallucinations Initial Vital Sign VS Vital Signs Date Time Temp Pulse Resp B/P (MAP) Pulse Ox O2 Delivery O2 Flow Rate FiO2 07/01/25 03:06 98.2 141 20 147/93 99 07/01/25 03:10 Room Air* 0 21 Physical Exam Dictation Secondary survey Vital signs reviewed-temperature 98.2 pulse 98 respirations 18 blood pressure 138/87 with a pulse oximetry of 99% General well-developed well-nourished C-collar in place alcohol breath Head-normocephalic right eyebrow laceration cleaned with saline dried blood gamboa in the neck palm of the left hand and throughout the right face dripping from the right eyebrow laceration Eyes pupils were equal round reactive to light conjunctiva clear extraocular movements intact no raccoon eyes ENT no murguia sign nares patent, oropharynx clear no fluid in the ear canals. Neck no JVD, midline trachea, no cervical spine tenderness, Heart S1-S2 regular no murmurs rubs or gallops Lungs-clear to auscultation bilaterally Chest chest wall nontender no bruising or deformity noted no flail chest Abdomen-no Rascon Rojo's or [place]'s sign, soft nontender no rebound or guarding-- Pelvis stable to rock Back-no step-offs or deformities T2 L-spine nontender no perineal hematoma no blood at the meatus Extremities 2+ global pulses, moving all extremities well +5 x 5 muscle strength globally Neurological-cranial nerves 2-12 grossly intact no sensory deficits Rectal-deferred Results (Laboratory/Radiology) Laboratory/Radiology Laboratory Tests Test 07/01/25 03:15 White Blood Count 12.8 K/uL (4.8-10.8) H Red Blood Count 4.48 MIL/uL (4.00-5.50) Hemoglobin 13.6 g/dL (12.0-16.0) Hematocrit 39.1 % (36-48) Mean Corpuscular Volume 87.3 fL (79-99) Mean Corpuscular Hemoglobin 30.4 pg (27.0-33.0) Mean Corpuscular Hemoglobin Concent 34.8 g/dL (32.0-36.0) Red Cell Distribution Width 12.1 % (11.0-15.5) Platelet Count 326 K/uL (130-400) Mean Platelet Volume 11.2 fL (7.5-10.5) H Immature Granulocyte % (Auto) 0.5 % (0-1) Neutrophils (%) (Auto) 40.1 % (40.0-77.0) Lymphocytes (%) (Auto) 52.7 % (21.0-51.0) H Monocytes (%) (Auto) 5.1 % (3.0-13.0) Eosinophils (%) (Auto) 1.2 % (0.0-8.0) Basophils (%) (Auto) 0.4 % (0.0-5.0) Neutrophils # (Auto) 5.1 K/uL (1.8-7.7) Lymphocytes # (Auto) 6.8 K/uL (1.0-4.8) H Monocytes # (Auto) 0.7 K/uL (0.1-1.0) Eosinophils # (Auto) 0.15 K/uL (0.00-0.70) Basophils # (Auto) 0.05 K/uL (0.00-0.20) Absolute Immature Granulocyte (auto 0.07 K/uL (0-1) Nucleated Red Blood Cells 0.0 % (0.0-0.19) Prothrombin Time 9.8 SEC (9.6-11.6) Prothromb Time International Ratio <= 0.93 (0.85-1.15) Activated Partial Thromboplast Time 26.2 SEC (26.3-35.5) L Sodium Level 138 mmol/L (136-145) Potassium Level 3.1 mmol/L (3.5-5.1) L Chloride Level 102 mmol/L (101-111) Carbon Dioxide Level 22 mmol/L (21-32) Blood Urea Nitrogen 13 mg/dL (7-18) Creatinine 0.6 mg/dL (0.5-1.0) Glomerular Filtration Rate Calc 128 mL/min (>90) Random Glucose 106 mg/dL (70-105) H Lactic Acid Level 2.5 mmol/L (0.8-2.5) Total Calcium 8.8 mg/dL (8.5-10.1) Total Creatine Kinase 174 U/L (21-232) # Serum Test, Qualitative NEGATIVE (NEGATIVE) Serum Alcohol 188 mg/dL (0-10) H Labs Reviewed?: Yes EKG Comment: Twelve lead EKG done on 07/01/2025 at 3:44 a.m. showed a heart rate of 94, ND interval 162, QRS 105, QT/QTC 365/456. Impression normal sinus rhythm with a sinus tachycardia overall somewhat low voltage could be secondary to her body habitus nonspecific ST-T changes noted. EKG rhythm strip shows a sinus tachy with a nonspecific ST-T changes. Interpreted by ER MD Dr. Banks X-RAY Comment: REASON: TRAUMA ALERT ORDERING PHYSICIAN: VIV BANKS MD PROCEDURE: CXR1VW - CHEST 1VW EXAM: CR Chest, 1 view CLINICAL HISTORY: Trauma. COMPARISON: Chest radiograph dated 01/25/2025. FINDINGS: The lungs show no infiltrates or other acute findings. No pleural effusion or pneumothorax. The cardiomediastinal silhouette is within normal limits. No acute osseous abnormality. IMPRESSION: No acute cardiopulmonary process is evident. Compared to the prior study, there is no significant interval change. /[place] DICTATED BY: TAPAN MIRANDA Jr., MD DATE: 07/01/25453 ELECTRONICALLY SIGNED BY: TAPAN MIRANDA Jr., MD DATE: 07/01/25453 CT Scan Comment: REASON: TRAUMA ALERT ORDERING PHYSICIAN: VIV BANKS MD PROCEDURE: C SPIN WO - CT CERVICAL SPINE W/O CONTRAST EXAM: CT Cervical Spine Without IV Contrast CLINICAL HISTORY: Trauma. TECHNIQUE: Thin collimated axial CT images of the cervical spine were obtained, with sagittal and coronal reformatted images also submitted. CT scan done according to ALARA (As Low As Reasonably Achievable). CONTRAST: None. COMPARISON: None provided. FINDINGS: No acute fracture. Straightening of the expected cervical lordosis reflects paraspinal muscle spasm. Normal vertebral body and disc heights. Normal bone density. The surrounding soft tissues are unremarkable. No disc bulge or herniation. No neural foraminal, lateral recess, or spinal canal stenosis. IMPRESSIONS: No acute fracture. Straightening of the expected cervical lordosis reflects paraspinal muscle spasm. /[place] DICTATED BY: TAPAN MIRANDA Jr., MD DATE: 07/01/25455 REASON: TRAUMA ALERT ORDERING PHYSICIAN: VIV BANKS MD PROCEDURE: HEAD WO - CT HEAD/BRAIN W/O CONTRAST EXAM: Non-contrast CT examination of the Brain CLINICAL HISTORY: Trauma. TECHNIQUE: Thin collimated axial CT images of the brain were obtained, with sagittal and coronal reformatted images also submitted. A CT scan is done according to ALARA (As Low as Reasonably Achievable). CONTRAST USED: None. COMPARISON: None provided. FINDINGS: No acute intracranial abnormality is present. No acute cortical infarction, hemorrhage, mass, or mass effect. No hydrocephalus or abnormal extra-axial fluid collections. The posterior fossa is unremarkable. The skull base and calvarium are intact. The included portions of the paranasal sinuses and mastoid air cells are clear. Soft tissue laceration and edema in the right supraorbital frontal scalp. Suboptimal evaluation due to motion artifacts in the basal sequences. IMPRESSION: No acute intracranial abnormality is present. /[place] DICTATED BY: TAPAN MIRANDA Jr., MD DATE: 07/01/25458 ELECTRONICALLY SIGNED BY: TAPAN MIRANDA Jr., MD DATE: 07/01/25458 ED Course ED Course Orders Procedure Category Date Status Time Ct Head/Brain W/O CT 07/01/25 Resulted Contrast 03:12 Ct Cervical Spine W/O CT 07/01/25 Resulted Contrast 03:12 Chest 1vw RAD 07/01/25 Resulted 03:12 Cbc With Differential LAB 07/01/25 In Process 03:14 Basic Metabolic Panel LAB 07/01/25 Complete 03:14 Testing, LAB 07/01/25 Complete Serum Hcg 03:14 Pt And Ptt LAB 07/01/25 Complete 03:14 Lactic Acid LAB 07/01/25 Complete 03:14 Alcohol, Blood LAB 07/01/25 Complete 03:14 Urinalysis Profile LAB 07/01/25 Logged 03:08 12 Lead Ekg Tracing- EKG 07/01/25 Complete Technical 03:08 Lactated Ringers PHA 07/01/25 In Process 1000ml (Lactated 03:30 Creatine Kinase, Total LAB 07/01/25 Complete 03:15 Morphine 2mg Syg PHA 07/01/25 Complete (Morphine 2mg Syg) 04:00 Ondansetron 4mg Inj PHA 07/01/25 Complete (Zofran 4mg Inj) 04:00 Ondansetron 4mg Inj PHA 07/01/25 Complete (Zofran 4mg Inj) 03:57 Morphine 2mg Syg PHA 07/01/25 Complete (Morphine 2mg Syg) 03:57 Current Medications Medications (Trade) Dose Ordered Sig/Julio C Route PRN Reason Start Time Stop Time Status Last Admin Dose Admin Lactated Ringer's 1,000 ml @ 125 mls/hr ONCE ONCE IV 07/01/25 03:30 07/01/25 11:29 07/01/25 04:01 Morphine Sulfate (morPHINE 2MG SYG) 2 mg ONCE ONCE IVP 07/01/25 04:00 07/01/25 04:01 DC 07/01/25 04:00 Morphine Sulfate (morPHINE 2MG SYG) 2 mg STK-MED ONCE .ROUTE 07/01/25 03:57 07/01/25 03:58 DC Ondansetron HCl (zoFRAN 4MG INJ) 4 mg ONCE ONCE IVP 07/01/25 04:00 07/01/25 04:01 DC 07/01/25 04:01 Ondansetron HCl (zoFRAN 4MG INJ) 4 mg STK-MED ONCE .ROUTE 07/01/25 03:57 07/01/25 03:57 DC Vital Signs Date Time Temp Pulse Resp B/P (MAP) Pulse Ox O2 Delivery O2 Flow Rate FiO2 07/01/25 03:10 98.2 116 18 138/87 99 Room Air* 0 21 07/01/25 03:06 98.2 141 20 147/93 99 We will perform diagnostic labs, advanced imaging and administer medications according to the patient's complaint. Once the results are available, will review and personally interpreted the labs to rule out any acute life- threatening emergency the trach require immediate intervention and treatment. I will then re-evaluate the patient after treatment and diagnostic exams have return to determine whether the patient requires any further testing, can safely be discharged home or need further admission to hospital for additional treatment and evaluation. Medical Decision Making MDM Differential diagnosis: Closed head injury, TBI, contusions and lacerations, skull fracture, subdural hematoma and other organ trauma Rationale: Tests considered and ordered secondary to shared decision making include: Previous outside records reviewed: Old ER visits. Risk of complication and/or morbidity or mortality of patient management: None Medications-Per medication reconciliation Need for hospitalization: Patient does not meet criteria for hospitalization. Need for emergency major/minor surgery: No There are no social concerns with this patient. Prescription drug management Prescriptions will include symptomatic care Patient's prior external medical records from other ER visits were reviewed by me as indicated. Prior testing and results from previous visits were reviewed. Prior tests were taken into account with medical decision making and resource utilization, independent historian/historians were used to obtain complete medical history. I independently interpreted the test that were performed, results were reviewed by me and considered findings on radiology if ordered. Medical management and examination interpretation discussions were had by me with other qualified healthcare professionals as indicated for the patient's care. Procedure Procedure Dictation: Procedure note-laceration repair Performing Physician -Andrew GALARZACP Ctaiqygttx-lckwv-blmatva laceration about over 4 cm in size with gaping wound and bleeding, jagged Premedication and anesthesia-1% lidocaine local, morphine 4 mg IV x1, Zofran 4 mg IV Procedure-extensive saline irrigation was done and the laceration was cleaned thoroughly and prepped. 1% lidocaine was injected all along the borders of the laceration and subcutaneously. Using a 3,0 Curved needle and Prolene, continuous sutures were placed from medial to lateral side to oppose the edges of the laceration. At least 10 sutures were placed as the wound was gaping to achieve good alignment of the laceration Hemostasis was achieved wound was cleansed after the suturing and sterile dressing applied. Patient tolerated the procedure extremely well without any immediate complications. Patient was instructed on wound care. Patient has a absorbable sutures Wound Location: face Wound Length (cm): 4 Wound's Depth, Shape: into muscle, irregular Wound Explored: no foreign body removed Irrigated w/ Saline (ccs): 25 Betadine Prep?: Yes Anesthesia: 1% Lidocaine Volume Anesthetic (ccs): 5 Wound Debrided: minimal Wound Repaired With: sutures Suture Size/Type: 3:0 Number of Sutures: 8 Sterile Dressing Applied?: Yes Problem List Problem List: (1) Fall from standing (2) Closed head injury (3) Laceration of right eyebrow (4) Alcohol intoxication (5) Facial contusion DX & DISP Disposition: Discharge Departure Impression: Primary Impression: Fall from standing Additional Impressions: Closed head injury, Laceration of right eyebrow, Alcohol intoxication, Facial contusion Condition: Stable Additional Instructions: Patient and the caregiver have been informed of all the diagnostic tests and the imaging conducted during the today's visit to the emergency room and has verbalized understanding of the results I have personally reviewed and interpreted all diagnostic exams performed here in the ER today as well as the vital signs documented by the nursing staff. The patient is now being discharged to home and should follow up with the primary care physician or the specialist as directed by the ER staff. Follow-up with primary care provider in 1 to 2 days. Take medications as directed here in the emergency room. Okay to continue home medications unless otherwise discussed during your visit in the emergency room today. Return to your nearest emergency room if symptoms worsen or if there is no improvement. Call 911 if you need immediate assistance. Take Tylenol or Motrin [id number] as needed and if no contraindications are present. Increase oral hydration. A wound culture or urine culture was ordered here in the emergency room department please follow-up with primary care provider and advise them to get repeat ports from our facility. If you had any Jere wrap/splints that were applied here, please do not remove them until you see your primary care or specialty. Patient's mother at bedside who will be driving the patient home Referrals: ITA KNIGHT DO (PCP) VIV BANKS MD Jul 01, 2025 03:34
[2025-07-01 03:35] LABS: INR <= 0.93 (0.85-1.15)
[2025-07-01 03:37] LABS: ALCOHOL, BLOOD 188.0 mg/dL (0-10); CREATINE KINASE, TOTAL 174.0 U/L (21-232)
--- NOTE | 2025-07-01 03:50 | EKG ---
[facility] Test Date: 2025-07-01 Test Time: 03:44:07 Pat Name: SHIRAZ BIGGS Department: ED Room: Gender: F Nurse Specialist: [id number] : 2000 Requested By: VIV ALVAREZ Order Number: [id number] Reading MD: Gio Watts Measurements Intervals [place] Rate: 94 P: 30 LA: 162 QRS: 12 QRSD: 105 T: 24 QT: 365 QTc: 456 Interpretive Statements Sinus rhythm Probable left atrial enlargement Low voltage, precordial leads Compared to ECG 01/25/2025 01:17:32 Low QRS voltage now present Electronically Signed On 07-01-2025 16:39:03 CDT by Gio Watts Please click the below link to view image of tracing.
--- NOTE | 2025-07-01 03:55 | HMCIMG ---
EXAM: CR Chest, 1 view CLINICAL HISTORY: Trauma. COMPARISON: Chest radiograph dated 01/25/2025. FINDINGS: The lungs show no infiltrates or other acute findings. No pleural effusion or pneumothorax. The cardiomediastinal silhouette is within normal limits. No acute osseous abnormality. IMPRESSION: No acute cardiopulmonary process is evident. Compared to the prior study, there is no significant interval change. /[place]
--- NOTE | 2025-07-01 03:57 | HMCIMG ---
EXAM: CT Cervical Spine Without IV Contrast CLINICAL HISTORY: Trauma. TECHNIQUE: Thin collimated axial CT images of the cervical spine were obtained, with sagittal and coronal reformatted images also submitted. CT scan done according to ALARA (As Low As Reasonably Achievable). CONTRAST: None. COMPARISON: None provided. FINDINGS: No acute fracture. Straightening of the expected cervical lordosis reflects paraspinal muscle spasm. Normal vertebral body and disc heights. Normal bone density. The surrounding soft tissues are unremarkable. No disc bulge or herniation. No neural foraminal, lateral recess, or spinal canal stenosis. IMPRESSIONS: No acute fracture. Straightening of the expected cervical lordosis reflects paraspinal muscle spasm. /[place]
--- NOTE | 2025-07-01 03:59 | HMCIMG ---
EXAM: Non-contrast CT examination of the Brain CLINICAL HISTORY: Trauma. TECHNIQUE: Thin collimated axial CT images of the brain were obtained, with sagittal and coronal reformatted images also submitted. A CT scan is done according to ALARA (As Low as Reasonably Achievable). CONTRAST USED: None. COMPARISON: None provided. FINDINGS: No acute intracranial abnormality is present. No acute cortical infarction, hemorrhage, mass, or mass effect. No hydrocephalus or abnormal extra-axial fluid collections. The posterior fossa is unremarkable. The skull base and calvarium are intact. The included portions of the paranasal sinuses and mastoid air cells are clear. Soft tissue laceration and edema in the right supraorbital frontal scalp. Suboptimal evaluation due to motion artifacts in the basal sequences. IMPRESSION: No acute intracranial abnormality is present. /[place]
[2025-07-01] MEDS: LACTATED RINGERS 1000ML 1,000 ML IV ONE (04:01)
[2025-07-01 04:59] LABS: APPEARANCE,URINE CLEAR (CLEAR); GLUCOSE, URINE (UA) NEGATIVE (NEGATIVE); LEUKOCYTE ESTERASE ,URINE NEGATIVE Leu/uL (NEGATIVE); NITRATE,URINE NEGATIVE (NEGATIVE); OCCULT BLOOD,URINE NEGATIVE (NEGATIVE)
[2025-07-01 05:10] LABS: ADD UA MICROSCOPIC NO
== END ==
LOC: EDH 03:04
DX: S01.111A Laceration without foreign body of right eyelid and periocular area, initial encounter (principal); F10.129 Alcohol abuse with intoxication, unspecified; F41.9 Anxiety disorder, unspecified; Z79.1 Long term (current) use of non-steroidal anti-inflammatories (NSAID); W18.39XA Other fall on same level, initial encounter; Y93.89 Activity, other specified; Y92.89 Other specified places as the place of occurrence of the external cause; Y99.8 Other external cause status
CPT/HCPCS: 99285; 70450; 96374; 71045; 96375; 12013; 82550; 80048; 84703; 85025; 85610; 85730; 83605; 81003; 36415; 72125; 93005; J2270; J2405

== ENCOUNTER 2025-09-03 23:17 | Emergency (ER) | payer OTHER ==
[~2025-09-03] VITALS: Ht 167.6 cm; Wt 95.3 kg
--- NOTE | 2025-09-03 23:22 | NUR ---
UA CUP PROVIDED
--- NOTE | 2025-09-03 23:30 | ERN ---
ED Note History of Present Illness Stated Complaint: RECTAL BLEEDING Chief Complaint: Rectal Bleed Time Seen by MD: 23:21 Dictation: PATIENT IS A 25-YEAR-OLD FEMALE COMING IN TODAY STATES SHE HAS HAD BLOOD ON HER STOOL WHEN SHE HAS BOWEL MOVEMENTS OVER THE LAST 2-3 DAYS. NO FEVER NO CHILLS NO NAUSEA VOMITING. SHE DENIES ANY HISTORY OF HEMORRHOIDS GI BLEED. PRIMARY CARE DOCTOR Allergies: Coded Allergies: No Known Allergies (Unverified Allergy, Unknown, 09/01/19) Home Meds Active Scripts Methylprednisolone (Medrol) 4 Mg Tablet, 1 TAB PO AD for 6 Days, #21 TAB 0 Refills Prov:MARIA CHAVIS MD 06/19/25 Azithromycin (Azithromycin) 250 Mg Tablet, 1 TAB PO AD for 5 Days, #5 TAB 0 Refills 2 the first day followed by 1 for days 2-5 Prov:MARIA CHAVIS MD 06/19/25 Ibuprofen (Ibuprofen 800 mg Tab) 800 Mg Tab, 800 MG PO Q6H PRN for PAIN, #30 TAB Prov:ENRRIQUE FLANAGAN MD 10/27/23 Ibuprofen (Ibuprofen 800 mg Tab) 800 Mg Tab, 800 MG PO Q6HPRN PRN for PAIN, #30 TAB Prov:ENRRIQUE FLANAGAN MD 10/27/23 Ibuprofen (Ibuprofen) 600 Mg Tablet, 600 MG PO Q6H PRN for PAIN, #20 TAB 0 Refills Prov:AJITH TORRES 08/11/23 Amoxicillin/Potassium Clav (Amox Tr-K Clv 875-125 mg Tab) 875 Mg-125 Mg Tablet, 1 EACH PO BID for 10 Days, #20 TAB 0 Refills Prov:AJITH TORRES 08/11/23 Naproxen (Naproxen) 500 Mg Tablet, 500 MG PO BID for 5 Days, #10 TAB Prov:DYLAN KEEN 07/09/23 Hydroxyzine HCl (Hydroxyzine HCl) 25 Mg Tablet, 25 MG PO BID for 5 Days, #10 TAB Prov:DYLAN KEEN 07/09/23 Ibuprofen (Ibuprofen) 600 Mg Tablet, 600 MG PO Q6H PRN for PAIN, #30 TAB Prov:YOGI ZUÑIGA 05/21/23 Guaifenesin (Robitussin Syrp) 100 Mg/5 Ml Syrp, 200 MG PO Q4PRN PRN for COUGH/COLD SYMPTOMS, #300 ML Prov:JORGE GARZAP 12/23/22 Ibuprofen (Ibuprofen) 600 Mg Tablet, 600 MG PO Q6H PRN for PAIN, #15 TAB Prov:JORGE GARZAP 12/23/22 Ibuprofen (Motrin/Advil) 800 Mg Tab, 800 MG PO TID, #30 TAB Prov:WANG JIMÉNEZ MD 09/13/22 Phenazopyridine HCl (Pyridium) 200 Mg Tab, 200 MG PO TIDPC, #9 TAB TAKE WITH FOOD TO PREVENT STOMACH UPSET. Prov:JORGE GARZAP 12/17/21 Cephalexin Monohydrate (Keflex) 500 Mg Cap, 500 MG PO QID for 7 Days, #28 CAP Prov:JORGE GARZAP 12/17/21 Past Medical History Past Medical History: Anxiety, Other Additional Past Medical Hx: STAPH Surgical History: Other Surgical History Other: RT LEG SX, D AND C Family History: Negative Social History: ETOH, Lives with family History: Not Applicable LMP: Aug 03, 2025 : 0 Para: 0 Aborts: 0 RN Note Reviewed/Agreed w/PFSH: Yes Review of System Dictation CONSTITUTIONAL: NEGATIVE EXCEPT FOR HPI HEAD/FACE: NEGATIVE EXCEPT FOR HPI EENT: NEGATIVE EXCEPT FOR HPI RESPIRATORY: NEGATIVE EXCEPT FOR HPI GASTROINTESTINAL/ABDOMINAL: NEGATIVE EXCEPT FOR HPI RECTAL BLEEDING GENITOURINARY: NEGATIVE EXCEPT FOR HPI MUSCULOSKELETAL: NEGATIVE EXCEPT FOR HPI INTEGUMENTARY: NEGATIVE EXCEPT FOR HPI NEUROLOGICAL/PSYCH: NEGATIVE EXCEPT FOR HPI HEMATOLOGIC/LYMPHATIC: NEGATIVE EXCEPT FOR HPI ALL SYSTEMS NEGATIVE, EXCEPT NOTED ABOVE. 13 POINT REVIEW OF SYSTEMS ASSESSED AND ALL NEGATIVE EXCEPT FOR ABOVE. Initial Vital Sign VS Vital Signs Date Time Temp Pulse Resp B/P (MAP) Pulse Ox O2 Delivery O2 Flow Rate FiO2 09/03/25 23:19 97.9 83 18 132/88 99 Room Air 09/03/25 23:29 0 21 Physical Exam Dictation VITAL SIGNS REVIEWED GENERAL APPEARANCE: ALERT, ORIENTED X 3, NO ACUTE DISTRESS, WELL DEVELOPED, NOURISHED. HEAD AND FACE: NON-TRAUMATIC. EYES: PERRL, PINK CONJUNCTIVAS, EYELID NO TRAUMA, ANTERIOR CHAMBER WITH ARCUS SENILIS. EARS: PINNAS INTACT AND NO SIGNS OF TRAUMA OR ERYTHEMA EAR CANALS CLEAR AND NO DISCHARGE TM NO ERYTHEMA NOSE: NO DISCHARGE, NO BLEEDING. OROPHARYNX: MOUTH NORMAL, TONGUE PINK, PHARYNX CLEAR,NO ERYTHEMA, TONSILS NO EXUDATES, NO ABSCESSES NOTED, MUCOUS MEMBRANE MOIST NECK: SUPPLE, NON-TENDER, NO THYROMEGALY, NO MASSES, NO JVD, NO BRUITS BREAST:DEFERRED CHEST:NO TENDERNESS, NO CREPITUS, NO PARADOXICAL MOVEMENT, NO RETRACTIONS LUNGS:CLEAR, WELL-VENTILATED, SYMMETRIC, NO RALES, NO WHEEZING, NO RHONCHI, NO STRIDOR, GOOD BREATH SOUNDS BILATERALLY HEART: REGULAR RATE, REGULAR RHYTHM, NO MURMUR, NO GALLOPS VASCULAR: NO PERIPHERAL EDEMA, ABDOMEN: SOFT, POSITIVE BOWEL SOUNDS, NONDISTENDED, NO GUARDING, NONTENDER, NO REBOUND, NO MASSES NO HEPATOMEGALY, NO SPLENOMEGALY, NO BECKMAN'S SIGN, NO HERNIAS. RECTAL: NO EXTERNAL HEMORRHOIDS NO FISSURES. NORMAL TONE GENITAL: DEFERRED NEUROLOGICAL: NORMAL SPEECH, MOTOR FUNCTION INTACT, SENSORY FUNCTION INTACT MUSCULOSKELETAL: NECK NONTENDER, FULL RANGE OF MOTION, BACK NONTENDER, FULL RANGE OF MOTION, EXTREMITIES: NONTENDER, FULL RANGE OF MOTION SKIN: COLOR PINK, DRY, NO TURGOR, NO RASH, NO LACERATIONS, NO ABRASIONS, NO CONTUSIONS. LYMPHATIC: DEFERRED Results (Laboratory/Radiology) Laboratory/Radiology Laboratory Tests Test 09/03/25 23:46 09/03/25 23:59 White Blood Count 11.3 K/uL (4.8-10.8) H Red Blood Count 4.14 MIL/uL (4.00-5.50) Hemoglobin 12.7 g/dL (12.0-16.0) Hematocrit 36.8 % (36-48) Mean Corpuscular Volume 88.9 fL (79-99) Mean Corpuscular Hemoglobin 30.7 pg (27.0-33.0) Mean Corpuscular Hemoglobin Concent 34.5 g/dL (32.0-36.0) Red Cell Distribution Width 12.1 % (11.0-15.5) Platelet Count 239 K/uL (130-400) Mean Platelet Volume 11.3 fL (7.5-10.5) H Immature Granulocyte % (Auto) 0.3 % (0-1) Neutrophils (%) (Auto) 47.3 % (40.0-77.0) Lymphocytes (%) (Auto) 43.6 % (21.0-51.0) Monocytes (%) (Auto) 6.5 % (3.0-13.0) Eosinophils (%) (Auto) 1.9 % (0.0-8.0) Basophils (%) (Auto) 0.4 % (0.0-5.0) Neutrophils # (Auto) 5.4 K/uL (1.8-7.7) Lymphocytes # (Auto) 4.9 K/uL (1.0-4.8) H Monocytes # (Auto) 0.7 K/uL (0.1-1.0) Eosinophils # (Auto) 0.22 K/uL (0.00-0.70) Basophils # (Auto) 0.05 K/uL (0.00-0.20) Absolute Immature Granulocyte (auto 0.03 K/uL (0-1) Nucleated Red Blood Cells 0.0 % (0.0-0.19) Sodium Level 135 mmol/L (136-145) L Potassium Level 3.6 mmol/L (3.5-5.1) Chloride Level 102 mmol/L (101-111) Carbon Dioxide Level 25 mmol/L (21-32) Blood Urea Nitrogen 15 mg/dL (7-18) Creatinine 0.7 mg/dL (0.5-1.0) Glomerular Filtration Rate Calc 123 mL/min (>90) Random Glucose 102 mg/dL (70-105) Total Calcium 8.8 mg/dL (8.5-10.1) Urine Color COLORLESS (YELLOW) Urine Appearance CLEAR (CLEAR) Urine pH 6.0 (5.0-8.0) Urine Specific [place] 1.003 (1.001-1.031) Urine Protein NEGATIVE mg/dL (NEGATIVE) Urine Glucose (UA) NEGATIVE mg/dL (NEGATIVE) Urine Ketones NEGATIVE mg/dL (NEGATIVE) Urine Occult Blood NEGATIVE (NEGATIVE) Urine Nitrate NEGATIVE (NEGATIVE) Urine Bilirubin NEGATIVE mg/dL (NEGATIVE) Urine Urobilinogen 0.2 mg/dL (0.2-1.0) Urine Leukocyte Esterase NEGATIVE James/uL Labs Reviewed?: Yes ED Course ED Course Orders Procedure Category Date Status Time Cbc With Differential LAB 09/03/25 Complete 23:28 Urinalysis Profile LAB 09/03/25 Complete 23:28 Basic Metabolic Panel LAB 09/03/25 Complete 23:28 Vital Signs Date Time Temp Pulse Resp B/P (MAP) Pulse Ox O2 Delivery O2 Flow Rate FiO2 09/03/25 23:29 98.1 83 18 132/88 98 Room Air* 0 21 09/03/25 23:19 97.9 83 18 132/88 99 Room Air 0030/PATIENT IS HEMODYNAMICALLY STABLE. DISCHARGED HOME TO FOLLOW UP FOLLOW UP WITH Medical Decision Making MDM MEDICAL DISCHARGE MAKING BASED ON PHYSICAL EXAMINATION AND BASIC LABS. PATIENT HAS A CHRONIC ANEMIA NO ACUTE CHANGES FROM HER LAST VISIT IN . NO ACTIVE BLEEDING AT THIS TIME. DISCHARGED HOME TO FOLLOW UP WITH DR. SIVAN BROWN IN THE LEG SEVERAL DAYS. DX & DISP Disposition: Discharge Departure Impression: Primary Impression: History of bloody stools Additional Impressions: Chronic anemia, Hyponatremia Condition: Stable Scripts Omeprazole (Omeprazole) 40 Mg Capsule.dr 1 CAP PO DAILY for 30 Days, #30 CAP 0 Refills Prov: JOANN TSAI 09/04/25 Additional Instructions: FOLLOW-UP WITH PRIMARY CARE PROVIDER IN 1 TO 2 DAYS. TAKE MEDICATIONS DIRECTED HERE IN THE EMERGENCY ROOM. OKAY TO CONTINUE HOME MEDICATIONS UNLESS OTHERWISE DISCUSSED DURING YOUR VISIT IN THE EMERGENCY ROOM TODAY. RETURN TO YOUR NEAREST EMERGENCY ROOM IF SYMPTOMS WORSEN OR IF THERE IS NO IMPROVEMENT. CALL 911 IF YOU NEED IMMEDIATE ASSISTANCE. TAKE TYLENOL OR MOTRIN [id number] NEEDED AND IF NO CONTRAINDICATIONS ARE PRESENT. INCREASE ORAL HYDRATION. A WOUND CULTURE OR URINE CULTURE WAS ORDERED HERE IN THE EMERGENCY ROOM DEPARTMENT PLEASE FOLLOW-UP WITH PRIMARY CARE PROVIDER AND ADVISE THEM TO GET REPEAT PORTS FROM OUR FACILITY. IF YOU HAD ANY ROBERT WRAP/SPLINTS THAT WERE APPLIED HERE, PLEASE DO NOT REMOVE THEM UNTIL YOU SEE YOUR PRIMARY CARE OR SPECIALTY. TAKE OMEPRAZOLE DIRECTED DAILY WITH FOOD. CALL PAPER TWISTER FOR AN APPOINTMENT TOMORROW AND FOLLOW UP IN THE NEXT SEVERAL DAYS. Referrals: SELF,REFERRAL (PCP) SIVAN MCFADDEN MD Time of Disposition: 00:31 I have reviewed the case, and I agree with, Diagnosis and Plan JOANN TSAI Sep 03, 2025 23:30
[2025-09-03 23:53] LABS: IMMATURE GRANULOCYTE ABSOLUTE 0.03 K/uL (0-1); NUCLEATED RED BLOOD CELLS 0.0 % (0.0-0.19); PLATELET COUNT (AUTO) 239 K/uL (130-400); RED BLOOD CELL COUNT(AUTO) 4.14 MIL/uL (4.00-5.50); RED CELL DISTRIBUTION WIDTH 12.1 % (11.0-15.5); WHITE BLOOD COUNT (AUTO) 11.3 K/uL (4.8-10.8)
[2025-09-04] LABS: CREATININE 0.7 mg/dL (0.5-1.0); GLOMERULAR FILTR. RATE CALC 123.0 mL/min (>90); GLUCOSE,RANDOM 102.0 mg/dL (70-105); SODIUM SERUM 135.0 mmol/L (136-145); UREA NITROGEN, BLOOD 15.0 mg/dL (7-18)
[2025-09-04 00:13] LABS: APPEARANCE,URINE CLEAR (CLEAR); GLUCOSE, URINE (UA) NEGATIVE (NEGATIVE); LEUKOCYTE ESTERASE ,URINE NEGATIVE Leu/uL (NEGATIVE); NITRATE,URINE NEGATIVE (NEGATIVE); OCCULT BLOOD,URINE NEGATIVE (NEGATIVE)
[2025-09-04 00:14] LABS: ADD UA MICROSCOPIC NO
[2025-09-04] MEDS ORDERED: OMEP40CA21 PO (00:33)
[2025-09-04 01:14] VITALS: BP 128/74; PULSE 80; RESP 20; TEMP 98.1; O2SAT 99
== END 2025-09-04 01:15 | disposition home or self-care (01) ==
LOC: EDH 23:17
DX: D64.9 Anemia, unspecified (principal); E87.1 Hypo-osmolality and hyponatremia; F41.9 Anxiety disorder, unspecified; Z79.1 Long term (current) use of non-steroidal anti-inflammatories (NSAID)
CPT/HCPCS: 36415; 80048; 81003; 85025; 99283

== ENCOUNTER 2025-09-18 10:55 | Emergency (ER) | payer OTHER ==
[~2025-09-18] VITALS: Ht 167.6 cm; Wt 94.3 kg
[~2025-09-18 10:55] MED LIST changes: +OMEP40CA21 PO
[2025-09-18 11:34] LABS: IMMATURE GRANULOCYTE ABSOLUTE 0.03 K/uL (0-1); NUCLEATED RED BLOOD CELLS 0.0 % (0.0-0.19); PLATELET COUNT (AUTO) 245 K/uL (130-400); RED BLOOD CELL COUNT(AUTO) 4.53 MIL/uL (4.00-5.50); RED CELL DISTRIBUTION WIDTH 12.1 % (11.0-15.5); WHITE BLOOD COUNT (AUTO) 11.2 K/uL (4.8-10.8)
[2025-09-18 11:41] LABS: CREATININE 0.7 mg/dL (0.5-1.0); GLOMERULAR FILTR. RATE CALC 123.0 mL/min (>90); GLUCOSE,RANDOM 101.0 mg/dL (70-105); SODIUM SERUM 136.0 mmol/L (136-145); UREA NITROGEN, BLOOD 13.0 mg/dL (7-18)
[2025-09-18 11:45] LABS: GLUCOSE, URINE (UA) NEGATIVE (NEGATIVE); LEUKOCYTE ESTERASE ,URINE MODERATE Leu/uL (NEGATIVE); NITRATE,URINE POSITIVE (NEGATIVE); OCCULT BLOOD,URINE LARGE (NEGATIVE)
[2025-09-18 11:51] LABS: ADD UA MICROSCOPIC YES; APPEARANCE,URINE CLOUDY (CLEAR)
[2025-09-18 11:52] LABS: HCG,QUANTITATIVE 0.0 mIU/mL (0-5)
[2025-09-18 12:26] LABS: SQUAMOUS EPITHELIAL CELL,UR Rare /HPF (0-2)
--- NOTE | 2025-09-18 13:22 | HMCIMG ---
EXAM: CT Abdomen and Pelvis Without IV contrast CLINICAL HISTORY: flank pain , hematuria TECHNIQUE: Axial computed tomography images of the abdomen and pelvis without intravenous contrast. CONTRAST: No IV contrast. COMPARISON: None provided. FINDINGS: LUNG BASES: The lung bases appear clear. No pleural effusions are seen. LIVER: Unremarkable. GALLBLADDER AND BILE DUCTS: The gallbladder appears within normal limits. No radioopaque gallstones are seen. No biliary ductal dilatation is evident. PANCREAS: Unremarkable. SPLEEN: Unremarkable. ADRENAL GLANDS: Unremarkable. KIDNEYS, URETERS, AND BLADDER: The kidneys appear within normal limits. There is no hydronephrosis or hydroureter. No urinary calculi are seen. STOMACH AND BOWEL: Unremarkable appearance of the stomach and bowel. No evidence of bowel obstruction. No evidence suggesting enteritis or colitis. APPENDIX: No evidence of acute appendicitis on CT examination. PERITONEUM: No free fluid. No free air. LYMPH NODES: No lymphadenopathy is evident. REPRODUCTIVE: Unremarkable as visualized. VASCULATURE: No evidence of abdominal aortic aneurysm. BONES: No aggressive appearing osseous lesion. No acute osseous pathology evident. IMPRESSION: No acute intra-abdominal or pelvic abnormality. /[place]
--- NOTE | 2025-09-18 13:57 | ERN ---
ED Note History of Present Illness Stated Complaint: HEMATURIA Chief Complaint: Blood in Urine: Time Seen by MD: 11:00 Time Seen by Midlevel: 11:03 Dictation: 25-year-old female coming in with complaints of pelvic pain onset this morning with the vaginal bleeding. Patient states it is her last menstrual period was about last week. Denies having any fever, nausea or vomiting or diarrhea. Allergies: Coded Allergies: No Known Allergies (Unverified Allergy, Unknown, 09/01/19) Home Meds Active Scripts Omeprazole (Omeprazole) 40 Mg Capsule.dr, 1 CAP PO DAILY for 30 Days, #30 CAP 0 Refills Prov:JOANN TSAI BACKBREAKER 09/04/25 Methylprednisolone (Medrol) 4 Mg Tablet, 1 TAB PO AD for 6 Days, #21 TAB 0 Refills Prov:MARIA CHAVIS MD 06/19/25 Azithromycin (Azithromycin) 250 Mg Tablet, 1 TAB PO AD for 5 Days, #5 TAB 0 Refills 2 the first day followed by 1 for days 2-5 Prov:MARIA CHAVIS MD 06/19/25 Ibuprofen (Ibuprofen 800 mg Tab) 800 Mg Tab, 800 MG PO Q6H PRN for PAIN, #30 TAB Prov:ENRRIQUE FLANAGAN MD 10/27/23 Ibuprofen (Ibuprofen 800 mg Tab) 800 Mg Tab, 800 MG PO Q6HPRN PRN for PAIN, #30 TAB Prov:ENRRIQUE FLANAGAN MD 10/27/23 Ibuprofen (Ibuprofen) 600 Mg Tablet, 600 MG PO Q6H PRN for PAIN, #20 TAB 0 Refills Prov:AJITH TORRES 08/11/23 Amoxicillin/Potassium Clav (Amox Tr-K Clv 875-125 mg Tab) 875 Mg-125 Mg Tablet, 1 EACH PO BID for 10 Days, #20 TAB 0 Refills Prov:AJITH TORRES 08/11/23 Naproxen (Naproxen) 500 Mg Tablet, 500 MG PO BID for 5 Days, #10 TAB Prov:DYLAN KEEN 07/09/23 Hydroxyzine HCl (Hydroxyzine HCl) 25 Mg Tablet, 25 MG PO BID for 5 Days, #10 TAB Prov:DYLAN KEEN 07/09/23 Ibuprofen (Ibuprofen) 600 Mg Tablet, 600 MG PO Q6H PRN for PAIN, #30 TAB Prov:YOGESH,YOGI Jacoby BACKBREAKER 05/21/23 Guaifenesin (Robitussin Syrp) 100 Mg/5 Ml Syrp, 200 MG PO Q4PRN PRN for COUGH/COLD SYMPTOMS, #300 ML Prov:JORGE GARZA BACKBREAKER 12/23/22 Ibuprofen (Ibuprofen) 600 Mg Tablet, 600 MG PO Q6H PRN for PAIN, #15 TAB Prov:JORGE GARZA BACKBREAKER 12/23/22 Ibuprofen (Motrin/Advil) 800 Mg Tab, 800 MG PO TID, #30 TAB Prov:WANG JIMÉNEZ MD 09/13/22 Phenazopyridine HCl (Pyridium) 200 Mg Tab, 200 MG PO TIDPC, #9 TAB TAKE WITH FOOD TO PREVENT STOMACH UPSET. Prov:JORGE GARZA BACKBREAKER 12/17/21 Cephalexin Monohydrate (Keflex) 500 Mg Cap, 500 MG PO QID for 7 Days, #28 CAP Prov:JORGE GARZA BACKBREAKER 12/17/21 Past Medical History Past Medical History: Anxiety, Other Additional Past Medical Hx: STAPH Surgical History: Other Surgical History Other: RT LEG SX, D AND C Family History: Negative Social History: ETOH, Lives with family History: Not Applicable LMP: Sep 07, 2025 : 0 Para: 0 Aborts: 0 Review of System Dictation Constitutional: Negative for fever,chills, and weight loss Eyes: Negative for injury, pain,redness, and discharge ENT: Negative for injury,pain or swelling Cardiovascular: Negative for chest pain, palpitations, and edema Respiratory: Negative for shortness of breath, cough, and wheezing, Abdomen/GI: Negative for abdominal pain, nausea, vomiting, diarrhea, and constipation Back: Negative for injury and pain : Negative for injury, bleeding and discharge, hematuria MS/Extremity: Negative for injury and deformity Skin: Negative for rash, and discoloration Neuro: Negative for headache, weakness, numbness, tingling, and seizure Psych: Negative for suicide ideation, homicidal ideation, and hallucinations Review of Systems: was completed Initial Vital Sign VS Vital Signs Date Time Temp Pulse Resp B/P (MAP) Pulse Ox O2 Delivery O2 Flow Rate FiO2 09/18/25 10:56 98.4 66 16 118/76 99 Room Air 0 09/18/25 11:39 21 Physical Exam Dictation General: awake, alert, NAD Head/Face: Normocephalic, atraumatic Eyes: PERRL, EOMI, vision at baseline ENT: oral cavity clear, TMs clear, no signs of infection Neck: Trachea midline, supple, no nuchal rigidity Cardiovascular: RRR, normal S1/S2, No MRGs, no JVD Respiratory: CTAB, no respiratory distress, No rales or wheezes Abdomen: Soft, non-tender, non-distended, normal bowel sounds, no guarding or rebound. Center pelvic pain Skin: Warm, dry, normal turgor, no rash MS/Extremity: Pulses equal, no cyanosis, neurovascular intact, FROM Neuro: COAx4, GCS 15, strength 5/5, CN 2-12 intact, normal cerebellar exam, normal gait, Psych: Normal behavior, mood, and affect normal Results (Laboratory/Radiology) Laboratory/Radiology Laboratory Tests Test 09/18/25 11:30 White Blood Count 11.2 K/uL (4.8-10.8) H Red Blood Count 4.53 MIL/uL (4.00-5.50) Hemoglobin 13.8 g/dL (12.0-16.0) Hematocrit 40.8 % (36-48) Mean Corpuscular Volume 90.1 fL (79-99) Mean Corpuscular Hemoglobin 30.5 pg (27.0-33.0) Mean Corpuscular Hemoglobin Concent 33.8 g/dL (32.0-36.0) Red Cell Distribution Width 12.1 % (11.0-15.5) Platelet Count 245 K/uL (130-400) Mean Platelet Volume 11.4 fL (7.5-10.5) H Immature Granulocyte % (Auto) 0.3 % (0-1) Neutrophils (%) (Auto) 61.4 % (40.0-77.0) Lymphocytes (%) (Auto) 31.6 % (21.0-51.0) Monocytes (%) (Auto) 4.9 % (3.0-13.0) Eosinophils (%) (Auto) 1.4 % (0.0-8.0) Basophils (%) (Auto) 0.4 % (0.0-5.0) Neutrophils # (Auto) 6.9 K/uL (1.8-7.7) Lymphocytes # (Auto) 3.5 K/uL (1.0-4.8) Monocytes # (Auto) 0.6 K/uL (0.1-1.0) Eosinophils # (Auto) 0.16 K/uL (0.00-0.70) Basophils # (Auto) 0.05 K/uL (0.00-0.20) Absolute Immature Granulocyte (auto 0.03 K/uL (0-1) Nucleated Red Blood Cells 0.0 % (0.0-0.19) Urine Color RED (YELLOW) H Urine Appearance CLOUDY (CLEAR) H Urine pH 6.0 (5.0-8.0) Urine Specific [place] 1.025 (1.001-1.031) Urine Protein 100 mg/dL (NEGATIVE) H Urine Glucose (UA) NEGATIVE mg/dL (NEGATIVE) Urine Ketones NEGATIVE mg/dL (NEGATIVE) Urine Occult Blood LARGE (NEGATIVE) H Urine Nitrate POSITIVE (NEGATIVE) H Urine Bilirubin NEGATIVE mg/dL (NEGATIVE) Urine Urobilinogen 1.0 mg/dL (0.2-1.0) Urine Leukocyte Esterase MODERATE James/uL Urine RBC TNTC /HPF (0-1) H Urine WBC 26-50 /HPF (0-1) H Urine Squamous Epithelial Cells Rare /HPF (0-2) Urine Bacteria Rare /HPF (None Seen) Sodium Level 136 mmol/L (136-145) Potassium Level 4.0 mmol/L (3.5-5.1) Chloride Level 102 mmol/L (101-111) Carbon Dioxide Level 28 mmol/L (21-32) Blood Urea Nitrogen 13 mg/dL (7-18) Creatinine 0.7 mg/dL (0.5-1.0) Glomerular Filtration Rate Calc 123 mL/min (>90) Random Glucose 101 mg/dL (70-105) Total Calcium 8.2 mg/dL (8.5-10.1) L Human Chorionic Gonadotropin, Quant 0 mIU/mL (0-5) Labs Reviewed?: Yes CT Scan Comment: [place] [id number] [place] [id number] IMAGING REPORT Signed PATIENT: SHIRAZ BIGGS MR#: [id number] : 2000 SEX: F AGE: 25 LOCATION: [facility] ORDER STATUS: REG ER REPORT#: [id number] SERVICE [id number] REASON: flank pain , hematuria ORDERING PHYSICIAN: MAX FRANCIS CNP PROCEDURE: ABD PEL WO - CT ABDOMEN/PELVIS W/O CONTRAST EXAM: CT Abdomen and Pelvis Without IV contrast CLINICAL HISTORY: flank pain , hematuria TECHNIQUE: Axial computed tomography images of the abdomen and pelvis without intravenous contrast. CONTRAST: No IV contrast. COMPARISON: None provided. FINDINGS: LUNG BASES: The lung bases appear clear. No pleural effusions are seen. LIVER: Unremarkable. GALLBLADDER AND BILE DUCTS: The gallbladder appears within normal limits. No radioopaque gallstones are seen. No biliary ductal dilatation is evident. PANCREAS: Unremarkable. SPLEEN: Unremarkable. ADRENAL GLANDS: Unremarkable. KIDNEYS, URETERS, AND BLADDER: The kidneys appear within normal limits. There is no hydronephrosis or hydroureter. No urinary calculi are seen. STOMACH AND BOWEL: Unremarkable appearance of the stomach and bowel. No evidence of bowel obstruction. No evidence suggesting enteritis or colitis. APPENDIX: No evidence of acute appendicitis on CT examination. PERITONEUM: No free fluid. No free air. LYMPH NODES: No lymphadenopathy is evident. REPRODUCTIVE: Unremarkable as visualized. VASCULATURE: No evidence of abdominal aortic aneurysm. BONES: No aggressive appearing osseous lesion. No acute osseous pathology evident. IMPRESSION: No acute intra-abdominal or pelvic abnormality. /[place] DICTATED BY: ADRYAN KESSLER DO DATE: 09/18/251421 ELECTRONICALLY SIGNED BY: ADRYAN KESSLER DO DATE: 09/18/251421 ED Course ED Course Orders Procedure Category Date Status Time Cbc With Differential LAB 09/18/25 Complete 11:11 Basic Metabolic Panel LAB 09/18/25 Complete 11:11 Urinalysis Profile LAB 09/18/25 Complete 11:11 Hcg,Quantitative LAB 09/18/25 Complete 11:11 Culture Urine [place] 09/18/25 In Process 11:51 Ct Abdomen/Pelvis W/O CT 09/18/25 Resulted Contrast 12:04 Vital Signs Date Time Temp Pulse Resp B/P (MAP) Pulse Ox O2 Delivery O2 Flow Rate FiO2 09/18/25 11:39 98.8 65 17 124/70 98 Room Air* 0 21 09/18/25 10:56 98.4 66 16 118/76 99 Room Air 0 Medical Decision Making MDM MDM: 25-year-old female coming in with complaints of pelvic pain onset this morning with the vaginal bleeding. Patient states it is her last menstrual period was about last week. Denies having any fever, nausea or vomiting or diarrhea.CBC shows white count of 11, no anemia, no thrombocytopenia. Chemistry shows no electrolyte abnormality. Kidney function is now. CT scan of the abdomen pelvis with the contrast shows no acute finding. Patient UA shows positive nitrites, positive leuk esterase, WBC count 26-50 and RBC so admits to count. He has tried the consent with a UTI in cystitis with hematuria. Patient will be given Rocephin in the ER and be discharged on antibiotics and follow up outpatient with PCP. Differential diagnosis: , UTI, kidney stone, pyelonephritis Rationale: Tests considered and ordered secondary to shared decision making include: Previous outside records reviewed: Old ER visits. Risk of complication and/or morbidity or mortality of patient management: None Medications-Per medication reconciliation Need for hospitalization: Patient does not meet criteria for hospitalization. Need for emergency major/minor surgery: No There are no social concerns with this patient. Prescription drug management Prescriptions will include symptomatic care Patient's prior external medical records from other ER visits were reviewed by me as indicated. Prior testing and results from previous visits were reviewed. Prior tests were taken into account with medical decision making and resource utilization, independent historian/historians were used to obtain complete medical history. I independently interpreted the test that were performed, results were reviewed by me and considered findings on radiology if ordered. Medical management and examination interpretation discussions were had by me with other qualified healthcare professionals as indicated for the patient's care. DX & DISP Disposition: Discharge Departure Impression: Primary Impression: Cystitis Additional Impression: UTI (urinary tract infection) Condition: Stable Scripts Sulfamethoxazole/Trimethoprim (Bactrim Ds Tablet) 800 Mg-160 Mg Tablet 1 TAB PO BID for 7 Days, #14 TAB 0 Refills Prov: MAX FRANCIS CNP 09/18/25 Additional Instructions: Follow up with your primary care doctor. Return to the hospital if you develop any back pain, fever, nausea or vomiting. Referrals: SELF,REFERRAL (PCP) Time of Disposition: 14:10 I have reviewed the case, and I agree with, Diagnosis and Plan MAX FRANCIS CNP Sep 18, 2025 13:57
[2025-09-18] MEDS ORDERED: SULF1TAB42 PO (14:11)
[2025-09-18 14:13] VITALS: BP 117/63; PULSE 80; RESP 17; TEMP 98.6; O2SAT 98
== END 2025-09-18 14:44 | disposition home or self-care (01) ==
LOC: EDH 10:55
DX: N30.00 Acute cystitis without hematuria (principal); F41.9 Anxiety disorder, unspecified; Z79.1 Long term (current) use of non-steroidal anti-inflammatories (NSAID); Z79.899 Other long term (current) drug therapy
CPT/HCPCS: 99285; 74176; 96374; 80048; 84702; 85025; 87086 ×2; 87186; 81001; 36415; J0696